=== PATIENT | male | born 1995 | race Caucasian/White ===

== ENCOUNTER 2018-08-09 13:54 | Emergency (ER) | payer SELFPAY ==
[~2018-08-09] VITALS: Ht 167.6 cm; Wt 54.6 kg
[~2018-08-09 13:54] MED LIST: ACET325T33 PO; BACL10TA PO; IBUP-1542 PO; IBUP-1561 PO; OFLO5DRO7 LEFT EAR
[2018-08-09 14:26] VITALS: BP 145/74; PULSE 102; RESP 18; Ht 167.6 cm; Wt 54.6 kg
== END 2018-08-09 16:55 | disposition left against medical advice (07) ==
LOC: FTE 13:54
DX: Z53.21 Procedure and treatment not carried out due to patient leaving prior to being seen by health care provider (principal)

== ENCOUNTER 2018-12-17 17:57 | Emergency (ER) | payer OTHER ==
[~2018-12-17] VITALS: Ht 165.1 cm; Wt 57.8 kg
[2018-12-17 18:04] VITALS: Ht 165.1 cm; Wt 57.8 kg
[2018-12-17] MEDS ORDERED: IBUP800T48 PO (19:03)
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
[2018-12-17 19:34] VITALS: BP 134/70; PULSE 78; RESP 20
== END 2018-12-17 19:34 | disposition home or self-care (01) ==
LOC: FTE 17:57
DX: M54.2 Cervicalgia (principal); F17.210 Nicotine dependence, cigarettes, uncomplicated
CPT/HCPCS: 72040; Z7502